=== PATIENT | male | born 1980 | race Caucasian/White ===

== ENCOUNTER 2018-02-20 00:23 | Emergency (ER) | payer MEDICAID ==
[~2018-02-20] VITALS: Ht 180.3 cm; Wt 99.3 kg
[2018-02-20 00:35] VITALS: Ht 180.3 cm; Wt 99.3 kg
[2018-02-20 01:07] VITALS: BP 137/90
== END 2018-02-20 01:07 | disposition home or self-care (01) ==
LOC: ED 00:23
DX: S61.011D Laceration without foreign body of right thumb without damage to nail, subsequent encounter (principal); W26.0XXD Contact with knife, subsequent encounter
CPT/HCPCS: 90714

== ENCOUNTER 2018-03-03 12:22 | Emergency (ER) | payer MEDICAID ==
[~2018-03-03] VITALS: Ht 180.3 cm; Wt 98.4 kg
[2018-03-03 12:40] VITALS: BP 125/78; Ht 180.3 cm; Wt 98.4 kg
== END 2018-03-03 13:48 | disposition home or self-care (01) ==
LOC: ED 12:22
DX: S61.310A Laceration without foreign body of right index finger with damage to nail, initial encounter (principal); F17.210 Nicotine dependence, cigarettes, uncomplicated; W26.8XXA Contact with other sharp object(s), not elsewhere classified, initial encounter; Y93.89 Activity, other specified; Y92.098 Other place in other non-institutional residence as the place of occurrence of the external cause; Y99.8 Other external cause status
CPT/HCPCS: A4570; J2001

== ENCOUNTER 2020-05-29 04:39 | Emergency (ER) | payer OTHER ==
[2020-05-29 04:47] VITALS: Ht 180.3 cm
[2020-05-29] MEDS ORDERED: CEPHALEXIN500 MG PO (05:22)
[2020-05-29 06:00] VITALS: BP 117/69
== END 2020-05-29 05:50 | disposition home or self-care (01) ==
LOC: ED 04:39
DX: L03.011 Cellulitis of right finger (principal)